=== PATIENT | female | born 1970 | race Caucasian/White ===

== ENCOUNTER 2024-04-30 11:56 | Inpatient (IN) | payer OTHER ==
[~2024-04-30] VITALS: Ht 180.3 cm; Wt 109.3 kg
[2024-04-30] MEDS ORDERED: MORPHINE SULFATE 4 MG/ML INJ (FOR IV/IM USE) IV ONE (12:30)
[2024-04-30] MEDS ORDERED: LORAZEPAM 2MG/ML INJ IV ONE (12:30)
[2024-04-30] MEDS ORDERED: CLINDAMYCIN 600 MG in DEXTROSE 5% WATER 50 ML IV ONE (13:00)
[2024-04-30 13:38] LABS: BASOPHILS % 1.2 % (0.0-2.0); EOSINOPHILS % 0.9 % (0.0-5.0); HEMATOCRIT. 27.4 % (36.0-48.0); HEMOGLOBIN. 8.6 g/dL (12.0-16.0); LYMPHOCYTES % 13.8 % (20.0-50.0); MEAN CORPUSCULAR HGB CONC 31.5 g/dL (31.0-37.0); MONOCYTES % 4.1 % (2.0-8.0); PLATELET 93 x1000/uL (130-400); RED CELL DISTRIBUTION WIDTH 17.7 % (11.6-14.6)
[2024-04-30 13:41] LABS: CHLORIDE 108 mEq/L (98-107); POTASSIUM 4.2 mEq/L (3.5-5.1); SODIUM 141 mEq/L (136-145)
[2024-04-30 13:42] LABS: CARBON DIOXIDE 23 mEq/L (21-32)
[2024-04-30 13:43] LABS: CALCIUM 8.5 mg/dL (8.7-10.4)
[2024-04-30 13:44] LABS: ADD RBC MORPHOLOGY YES; DIFFERENTIAL COMMENT 1
[2024-04-30 13:48] LABS: GLUCOSE 196 mg/dL (70-105); UREA NITROGEN BLOOD 20 mg/dL (9-23)
[2024-04-30 13:49] LABS: ALANINE AMINOTRANSFERASE 17 IU/L (10-49); ALBUMIN 3.9 g/dL (3.2-4.8); ASPARTATE AMINOTRANSFERASE 17 IU/L (<34); LACTIC ACID 2.1 mmol/L (0.4-2.0)
[2024-04-30 13:50] LABS: BILIRUBIN TOTAL 2.1 mg/dL (0.1-1.0); INR 1.1; PROTEIN TOTAL 6.1 g/dL (6.0-8.3); PROTHROMBIN TIME 12.3 sec (9.6-11.0)
[2024-04-30 13:51] LABS: CREATINE KINASE < 15 IU/L (34-145)
[2024-04-30 13:53] LABS: HCG SCREEN NEGATIVE; THYROID STIMULATING HORMONE 10.52 uIU/mL (0.55-4.78)
[2024-04-30] MEDS: MORPHINE SULFATE 4 MG/ML INJ (FOR IV/IM USE) IV NR (15:36)
[2024-04-30] MEDS: MEROPENEM 1G/100ML 100 ML IV SCH (16:13)
[2024-04-30] MEDS: CLINDAMYCIN 600MG PREMIX 50 ML IV NR (16:49)
[2024-04-30 17:08] LABS: PLATELET ESTIMATE NORMAL
[2024-04-30] MEDS: LORAZEPAM 2MG/ML INJ IV NR (17:08)
[2024-04-30] MEDS: LINEZOLID 600 MG PREMIX 300 ML IV STA (19:09)
[2024-04-30] MEDS ORDERED: ONDANSETRON HCL 4MG/2ML INJ IV PRN (19:45)
[2024-04-30] MEDS ORDERED: CLONIDINE 0.1MG TABLET PO PRN (19:45)
[2024-04-30] MEDS ORDERED: IPRATROPIUM/ALBUTEROL 0.5-3(2.5)MG/3ML NEB HHN PRN (19:45)
[2024-04-30] MEDS ORDERED: ACETAMINOPHEN 325MG TABLET PO PRN (19:45)
[2024-04-30 19:55] LABS: CLARITY URINE CLOUDY (CLEAR); COLOR URINE DARK YELLOW (YELLOW); GLUCOSE URINE NEGATIVE (NEGATIVE); KETONES URINE TRACE (NEGATIVE); LEUKOCYTE ESTERASE URINE 1+ (NEGATIVE); NITRITE URINE POSITIVE (NEGATIVE); OCCULT BLOOD URINE TRACE (NEGATIVE); PROTEIN URINE TRACE (NEGATIVE); SPECIFIC GRAVITY URINE 1.027 (1.005-1.030)
[2024-04-30 20:00] VITALS: BP 137/70; PULSE 70; RESP 18; TEMP 98.2
[2024-04-30 20:05] LABS: BACTERIA URINE 3+; RBC URINE 0-2 /hpf (0-2); SQUAMOUS EPITHELIAL CELL URINE 1+ /lpf (RARE/1+)
[2024-04-30] MEDS: CLINDAMYCIN 600MG PREMIX 50 ML IV SCH (22:59)
[2024-04-30] MEDS: DIPHENHYDRAMINE 50MG/ML VIAL IV PRN (22:59)
[2024-05-01] VITALS: BP 130/69; PULSE 72; RESP 18; TEMP 98
[2024-05-01 04:00] VITALS: BP 128/70; PULSE 71; RESP 18; TEMP 98.2
[2024-05-01 08:00] VITALS: BP 142/74; PULSE 71; RESP 18; TEMP 97
[2024-05-01] MEDS ORDERED: NALOXONE HCL 0.4MG/ML VIAL IV PRN (08:00)
[2024-05-01] MEDS: MORPHINE SULFATE 2 MG/ML INJ (NOT FOR IM USE) IV PRN (11:06)
[2024-05-01 12:34] VITALS: BP 142/74; PULSE 71; RESP 18; TEMP 97
[2024-05-01 15:03] VITALS: BP 142/74; PULSE 71; RESP 19; TEMP 97
[2024-05-01] MEDS ORDERED: DEXTROSE 50% WATER 50ML SYRINGE IV PRN (15:30)
[2024-05-01] MEDS: LISINOPRIL 40MG TABLET PO SCH (15:30)
[2024-05-01] MEDS: LEVOTHYROXINE SODIUM 50MCG TABLET PO SCH (15:30)
[2024-05-01] MEDS: BLOOD SUGAR DIAGNOSTIC STRIP TEST SCH (17:20)
[2024-05-01] MEDS: INSULIN LISPRO 100 UNITS/ML SUBCUT SCH (17:50)
[2024-05-01 18:38] LABS: HEMATOCRIT. 22.7 % (36.0-48.0); HEMOGLOBIN. 7.3 g/dL (12.0-16.0); LYMPHOCYTES % 26.3 % (20.0-50.0); MEAN CORPUSCULAR HEMOGLOBIN 36.3 pg (28.0-32.0); MEAN CORPUSCULAR HGB CONC 32.1 g/dL (31.0-37.0); MEAN CORPUSCULAR VOLUME 113.2 fL (81.0-99.0); MEAN PLATELET VOLUME 9.4 fl (7.4-10.4); MONOCYTES % 4.7 % (2.0-8.0); PLATELET 72 x1000/uL (130-400); RED BLOOD CELL COUNT 2.01 mill/uL (4.2-5.4); RED CELL DISTRIBUTION WIDTH 18.1 % (11.6-14.6); WHITE BLOOD COUNT 2.2 x1000/uL (4.5-11.0)
[2024-05-01 18:39] LABS: DIFFERENTIAL COMMENT 1
[2024-05-01 18:53] LABS: POTASSIUM 4.6 mEq/L (3.5-5.1)
[2024-05-01 18:54] LABS: CALCIUM 8.2 mg/dL (8.7-10.4)
[2024-05-01 18:59] LABS: CREATININE 1.2 mg/dL (0.6-1.0)
[2024-05-01 19:02] LABS: T4 FREE 0.9 ng/dL (0.89-1.76)
[2024-05-01 20:00] VITALS: BP 119/66; PULSE 79; RESP 19; TEMP 98.8
[2024-05-02] VITALS: BP 129/67; PULSE 77; RESP 18; TEMP 97.9
[2024-05-02 04:00] VITALS: BP 143/66; PULSE 71; RESP 20; TEMP 98.3
[2024-05-02 08:00] VITALS: BP 145/56; PULSE 72; RESP 18; TEMP 97.5
[2024-05-02 12:00] VITALS: BP 133/59; PULSE 64; RESP 17; TEMP 97.6
[2024-05-02 16:00] VITALS: BP 109/52; PULSE 68; PULSE 72; RESP 18; TEMP 96.9; TEMP 97.4
[2024-05-02 18:15] LABS: BASOPHILS % 1.2 % (0.0-2.0); EOSINOPHILS % 3.3 % (0.0-5.0); HEMATOCRIT. 21.3 % (36.0-48.0); LYMPHOCYTES % 26.4 % (20.0-50.0); MEAN CORPUSCULAR HEMOGLOBIN 35.7 pg (28.0-32.0); MEAN CORPUSCULAR HGB CONC 31.9 g/dL (31.0-37.0); MEAN PLATELET VOLUME 9.3 fl (7.4-10.4); MONOCYTES % 4.7 % (2.0-8.0); NEUTROPHILS % 64.4 % (40.0-76.0); PLATELET 77 x1000/uL (130-400); RED CELL DISTRIBUTION WIDTH 17.8 % (11.6-14.6); WHITE BLOOD COUNT 2.2 x1000/uL (4.5-11.0)
[2024-05-02 18:20] LABS: POTASSIUM 4.7 mEq/L (3.5-5.1)
[2024-05-02 18:23] LABS: DIFFERENTIAL COMMENT 1; HEMOGLOBIN. 6.8 g/dL (12.0-16.0)
[2024-05-02 18:26] LABS: CREATININE 1.1 mg/dL (0.6-1.0)
[2024-05-02 20:00] VITALS: BP 123/69; PULSE 77; RESP 19; TEMP 97.5
[2024-05-02] MEDS: HYDROCODONE/ACETAMINOPHEN 5/325MG TABLET PO PRN (21:48)
[2024-05-03] VITALS (11 sets, daily range): BP systolic 98–139; BP diastolic 41–81; PULSE 60–80; RESP 20; TEMP 97.3–98.1
[2024-05-03 10:01] LABS: CHLORIDE 104 mEq/L (98-107); POTASSIUM 4.3 mEq/L (3.5-5.1); SODIUM 136 mEq/L (136-145)
[2024-05-03 10:02] LABS: CALCIUM 8.3 mg/dL (8.7-10.4); CARBON DIOXIDE 24 mEq/L (21-32)
[2024-05-03 10:07] LABS: CREATININE 0.9 mg/dL (0.6-1.0); GLUCOSE 137 mg/dL (70-105); UREA NITROGEN BLOOD 20 mg/dL (9-23)
[2024-05-03 10:09] LABS: ALANINE AMINOTRANSFERASE 13 IU/L (10-49); ALBUMIN 3.5 g/dL (3.2-4.8); ASPARTATE AMINOTRANSFERASE 16 IU/L (<34); BILIRUBIN TOTAL 2.4 mg/dL (0.1-1.0); PROTEIN TOTAL 5.4 g/dL (6.0-8.3)
[2024-05-03 10:18] LABS: INR 1.1; PROTHROMBIN TIME 11.8 sec (9.6-11.0)
[2024-05-03 10:23] LABS: BASOPHILS % 0.8 % (0.0-2.0); EOSINOPHILS % 4.3 % (0.0-5.0); HEMATOCRIT. 25.8 % (36.0-48.0); LYMPHOCYTES % 34.2 % (20.0-50.0); MEAN CORPUSCULAR HEMOGLOBIN 34.8 pg (28.0-32.0); MEAN CORPUSCULAR HGB CONC 32.6 g/dL (31.0-37.0); MEAN CORPUSCULAR VOLUME 106.9 fL (81.0-99.0); MEAN PLATELET VOLUME 9.2 fl (7.4-10.4); MONOCYTES % 3.7 % (2.0-8.0); PLATELET 72 x1000/uL (130-400); RED BLOOD CELL COUNT 2.41 mill/uL (4.2-5.4); RED CELL DISTRIBUTION WIDTH 23.1 % (11.6-14.6)
[2024-05-03 10:48] LABS: DIFFERENTIAL COMMENT 1
[2024-05-03 10:49] LABS: HEMOGLOBIN. 8.4 g/dL (12.0-16.0)
[2024-05-04] VITALS: BP 128/61; PULSE 66; RESP 19; TEMP 96.6
[2024-05-04 04:00] VITALS: BP 123/53; PULSE 63; RESP 20; TEMP 96.3
[2024-05-04 08:00] VITALS: BP 123/58; PULSE 62; RESP 18; TEMP 98.2
[2024-05-04] MEDS: FILGRASTIM-TBO 480 MCG/0.8 ML SYRINGE SQ SCH ×2 (09:00→21:54)
[2024-05-04 12:00] VITALS: BP 121/53; PULSE 60; RESP 18; TEMP 97.5
[2024-05-04 20:00] VITALS: BP 139/69; PULSE 71; RESP 20; TEMP 97.3
[2024-05-05] VITALS: BP 132/64; PULSE 65; RESP 20; TEMP 97.1
[2024-05-05 04:00] VITALS: BP 126/56; PULSE 58; RESP 20; TEMP 96.8
[2024-05-05 08:00] VITALS: BP 121/56; PULSE 68; RESP 18; TEMP 97
[2024-05-05 12:00] VITALS: BP 114/61; PULSE 70; RESP 18; TEMP 96.3
[2024-05-05 16:51] VITALS: BP 126/57; PULSE 67; RESP 18; TEMP 96.9
[2024-05-05 20:00] VITALS: BP 105/70; PULSE 72; RESP 18; TEMP 97.9
[2024-05-06] VITALS: BP 117/72; PULSE 84; RESP 18; TEMP 97.8
[2024-05-06 04:00] VITALS: BP 147/68; PULSE 76; RESP 18; TEMP 97.7
[2024-05-06 08:00] VITALS: BP 121/58; PULSE 68; RESP 17; TEMP 97.9
[2024-05-06 08:38] LABS: HEMATOCRIT. 26.2 % (36.0-48.0); HEMOGLOBIN. 8.3 g/dL (12.0-16.0); MEAN CORPUSCULAR HEMOGLOBIN 34.4 pg (28.0-32.0); MEAN CORPUSCULAR HGB CONC 31.9 g/dL (31.0-37.0); MEAN PLATELET VOLUME 9.2 fl (7.4-10.4); RED BLOOD CELL COUNT 2.42 mill/uL (4.2-5.4); RED CELL DISTRIBUTION WIDTH 23.8 % (11.6-14.6)
[2024-05-06 08:57] LABS: DIFFERENTIAL COMMENT 1
[2024-05-06 11:19] LABS: ANISOCYTOSIS 4+; NUCLEATED RED BLOOD CELLS 4 /100 WBC; PLATELET ESTIMATE MARKEDLY DECREASED
[2024-05-06 11:21] LABS: PLATELET 42 x1000/uL (130-400)
[2024-05-06 12:00] VITALS: BP 109/46; PULSE 62; RESP 18; TEMP 97.7
[2024-05-06 16:00] VITALS: BP 117/47; PULSE 66; RESP 18; TEMP 97.9
[2024-05-06 20:00] VITALS: BP 125/47; PULSE 71; RESP 18; TEMP 98.8
[2024-05-07] VITALS (7 sets, daily range): BP systolic 112–148; BP diastolic 56–68; PULSE 60–79; RESP 17–19; TEMP 96–98.8; O2SAT 98
[2024-05-07] MEDS ORDERED: NALOXONE HCL 0.4MG/ML VIAL IV PRN (16:45)
[2024-05-07] MEDS: HYDROCODONE/ACETAMINOPHEN 5/325MG TABLET PO PRN (17:37)
== END 2024-05-07 21:30 | disposition home or self-care (01) | DRG 603 ==
LOC: ER 11:56 → 5WST 15:10 → EDBEDREQ 15:15 → EDBEDREQTM 15:15 → 6EST 05-01 09:10
PROVIDERS: ADMIT Internal Medicine; ATTEND Internal Medicine
DX: L03.115 Cellulitis of right lower limb (principal); N39.0 Urinary tract infection, site not specified; D47.1 Chronic myeloproliferative disease; L03.116 Cellulitis of left lower limb; E11.9 Type 2 diabetes mellitus without complications; I10 Essential (primary) hypertension; D69.6 Thrombocytopenia, unspecified; L27.0 Generalized skin eruption due to drugs and medicaments taken internally; D64.9 Anemia, unspecified; M79.7 Fibromyalgia; T36.8X5A Adverse effect of other systemic antibiotics, initial encounter; E66.01 Morbid (severe) obesity due to excess calories; R58 Hemorrhage, not elsewhere classified; Z88.0 Allergy status to penicillin; Z88.1 Allergy status to other antibiotic agents; Z90.710 Acquired absence of both cervix and uterus; Z85.6 Personal history of leukemia; Y92.89 Other specified places as the place of occurrence of the external cause; Z68.33 Body mass index [BMI] 33.0-33.9, adult
CPT/HCPCS: 36415; 73718; 80048; 80053; 80076; 81003; 82550; 82962; 83036; 83605; 83880; 84145; 84439; 84443; 84481; 84703; 85025; 86850; 86900; 86920; 93005; 93970; 97116; 97162; 99291; J1200; J1442; J1815; J2020; J2060; J2185; J2270; J3490; J7060; P9016

== ENCOUNTER 2025-01-04 19:23 | Emergency (ER) | payer OTHER ==
[~2025-01-04] VITALS: Ht 175.3 cm; Wt 124.0 kg
[2025-01-04 19:25] VITALS: TEMP 37.6; O2SAT 99
[2025-01-04] MEDS: MORPHINE SULFATE 4 MG/ML INJ (FOR IV/IM USE) IM STA (22:29)
[2025-01-05 02:06] VITALS: O2SAT 100
[2025-01-05 02:53] VITALS: BP 153/88; PULSE 67; RESP 16
[2025-01-05] MEDS: MORPHINE SULFATE 4 MG/ML INJ (FOR IV/IM USE) IM NR (02:53)
== END 2025-01-05 03:05 | disposition home or self-care (01) ==
LOC: ER 19:37
DX: G89.29 Other chronic pain (principal); M25.552 Pain in left hip; M25.551 Pain in right hip; I10 Essential (primary) hypertension; E11.9 Type 2 diabetes mellitus without complications; Z88.1 Allergy status to other antibiotic agents; Z88.0 Allergy status to penicillin
CPT/HCPCS: 99285; 72131; 72192; 96372; J2270